=== PATIENT | female | born 1945 | race Caucasian/White ===

== ENCOUNTER 2022-08-10 11:11 | Inpatient (IN) | payer OTHER ==
[~2022-08-10] VITALS: Ht 162.6 cm; Wt 61.2 kg
[2022-08-10 11:31] VITALS: BP_SYST 132
[2022-08-10] MEDS ORDERED: HYDROcodone/ACETAMIN 10-325 MG TAB PO ONE (12:00)
[2022-08-10] MEDS ORDERED: LORazepam 1 MG TABLET PO ONE (12:00)
[2022-08-10] MEDS ORDERED: KETOROLAC TROMETHAMINE 60 MG/2 ML VIAL IM ONE (12:00)
[2022-08-10] MEDS ORDERED: MORPHINE 4 MG INJ. 4 MG/ML VIAL IM ONE (13:45)
[2022-08-10 14:46] LABS: BASOPHILS % (AUTO) 0.6 % (0.0-2.0); EOSINOPHILS % (AUTO) 0.2 % (0.0-4.0); HEMATOCRIT 38.5 % (36-48); HEMOGLOBIN 12.6 g/dL (12.0-16.0); LYMPHOCYTES # (AUTO) 0.9 K/uL (1.0-5.5); LYMPHOCYTES % (AUTO) 11.6 % (20.5-51.5); MEAN CORPUSCULAR HEMOGLOBIN 27 pg (27-31); MEAN CORPUSCULAR HGB CONC 33 % (32-36); MEAN CORPUSCULAR VOLUME 83 fL (79.0-98.0); MONOCYTES # (AUTO) 0.4 K/uL (0.0-1.0); MONOCYTES % (AUTO) 4.7 % (1.7-9.3); NEUTROPHILS # (AUTO) 6.4 K/uL (1.8-7.7); NEUTROPHILS % (AUTO) 82.9 % (40.0-70.0); PLATELET COUNT (AUTO) 345 K/uL (130-430); RED BLOOD CELL COUNT(AUTO) 4.64 MIL/uL (4.2-6.2); RED CELL DISTRIBUTION WIDTH 19.5 % (9.0-15.0); WHITE BLOOD COUNT (AUTO) 7.7 K/uL (4.8-10.8)
[2022-08-10 14:55] LABS: ANION GAP 7 (5-15); CHLORIDE 97 mmol/L (98-107); CREATININE 0.86 mg/dL (0.55-1.30); GLUCOSE 119 mg/dL (70-99); UREA NITROGEN, BLOOD 20 mg/dL (8-21)
[2022-08-10 15:15] LABS: ALANINE AMINOTRANSFERASE 27 U/L (12-78); ALBUMIN 3.6 g/dL (3.4-4.8); ASPARTATE AMINOTRANSFERASE 24 U/L (10-37); TOTAL BILIRUBIN 0.5 mg/dL (0.0-1.0)
[2022-08-10] MEDS ORDERED: ONDANSETRON HCL 4 MG/2 ML VIAL IVP PRN (17:00)
[2022-08-10] MEDS ORDERED: MORPHINE 4 MG INJ. 4 MG/ML VIAL IVP ONE (19:15)
[2022-08-10] MEDS ORDERED: ONDANSETRON HCL 4 MG/2 ML VIAL IVP ONE (19:15)
[2022-08-10 21:05] LABS: BILIRUBIN,URINE NEGATIVE (NEGATIVE); BLOOD, URINE NEGATIVE (NEGATIVE); CLARITY/URINE CLEAR (CLEAR); COLOR,URINE YELLOW (YELLOW); GLUCOSE,URINE NEGATIVE (NEGATIVE); KETONES,URINE NEGATIVE (NEGATIVE); LEUKOCYTE ESTERASE ,URINE TRACE (NEGATIVE); NITRITE, URINE NEGATIVE (NEGATIVE); PROTEIN URINE NEGATIVE (NEGATIVE); UROBILINOGEN,URINE 0.2 (0.2-1.0)
[2022-08-10 21:16] LABS: BACTERIA,URINE FEW /HPF (None Seen); MUCUS,URINE None Seen /LPF (None Seen); RBC,URINE 0-3 /HPF (0-3)
[2022-08-10] MEDS: HYDROmorphone 1 MG/ML INJ. CARTRIDGE IVP PRN (21:47)
[2022-08-10 23:42] VITALS: BP_SYST 162; BP_SYST 170
[2022-08-11] MEDS: HYDROmorphone 1 MG/ML INJ. CARTRIDGE IVP PRN ×4 (04:32→22:37)
[2022-08-11] MEDS: HYDROcodone/ACETAMIN 5-325 MG TAB (NORCO/ VICODIN) PO PRN ×2 (07:07→13:34)
[2022-08-11 08:08] VITALS: BP_SYST 140
[2022-08-11 12:00] VITALS: BP_SYST 144
[2022-08-11] MEDS ORDERED: VALSARTAN 160 MG TABLET (DIOVAN) PO SCH (15:30)
[2022-08-11] MEDS ORDERED: BACL10TA PO (15:42)
[2022-08-11] MEDS ORDERED: LAM100 PO (15:42)
[2022-08-11] MEDS ORDERED: DULO30CA52 PO (15:42)
[2022-08-11] MEDS ORDERED: METO50TA7 PO (15:42)
[2022-08-11] MEDS ORDERED: AMLO5TAB92 PO (15:42)
[2022-08-11] MEDS ORDERED: CLON0.1T PO (15:42)
[2022-08-11] MEDS ORDERED: VALS320T2 PO (15:42)
[2022-08-11] MEDS ORDERED: ZOLP10TA2 PO (15:42)
[2022-08-11 16:00] VITALS: BP_SYST 132
[2022-08-11] MEDS ORDERED: amLODIPine BESYLATE 5 MG TABLET PO ONE (16:00)
[2022-08-11] MEDS ORDERED: DULoxetine HCL 30 MG CAPSULE.DR (CYMBALTA) PO ONE (16:00)
[2022-08-11] MEDS ORDERED: METOPROLOL SUCCINATE 50 MG TAB.SR.24H (TOPROL XL) PO ONE (16:00)
[2022-08-11] MEDS ORDERED: LOSARTAN POTASSIUM 50 MG TABLET (COZAAR) PO ONE (16:15)
[2022-08-11] MEDS ORDERED: LIDOCAINE PATCH 5% 1 EA TP ONE (16:15)
[2022-08-11] MEDS: D5NS 1,000 ML IV SCH (16:31)
[2022-08-11 20:00] VITALS: BP_SYST 175
[2022-08-11] MEDS: AMITRIPTYLINE HCL 25 MG TABLET (ELAVIL) PO SCH (20:39)
[2022-08-11] MEDS: BACLOFEN 10 MG TABLET PO SCH (20:40)
[2022-08-11] MEDS: cloNIDine HCL 0.1 MG TABLET PO PRN (20:40)
[2022-08-11] MEDS: OXYCODONE/ACETAMINOPHEN 5-325 TABLET PO PRN (20:41)
[2022-08-11] MEDS: LamoTRIgine 100 MG TABLET PO SCH (20:42)
[2022-08-11] MEDS: ZOLPIDEM TARTRATE 5 MG TABLET PO SCH (23:50)
[2022-08-12] VITALS: BP_SYST 149
[2022-08-12] MEDS: HYDROmorphone 1 MG/ML INJ. CARTRIDGE IVP PRN ×3 (06:10→21:16)
[2022-08-12 08:00] VITALS: BP_SYST 162
[2022-08-12 08:05] VITALS: BP_SYST 159
[2022-08-12] MEDS: AMITRIPTYLINE HCL 25 MG TABLET (ELAVIL) PO SCH ×2 (09:45→21:15)
[2022-08-12] MEDS: LOSARTAN POTASSIUM 50 MG TABLET (COZAAR) PO SCH (09:46)
[2022-08-12] MEDS: OXYCODONE/ACETAMINOPHEN 5-325 TABLET PO PRN (09:47)
[2022-08-12] MEDS: METOPROLOL SUCCINATE 50 MG TAB.SR.24H (TOPROL XL) PO SCH (09:48)
[2022-08-12] MEDS: amLODIPine BESYLATE 5 MG TABLET PO SCH (09:48)
[2022-08-12] MEDS: BACLOFEN 10 MG TABLET PO SCH ×3 (09:49→21:14)
[2022-08-12] MEDS: DULoxetine HCL 30 MG CAPSULE.DR (CYMBALTA) PO SCH (09:49)
[2022-08-12] MEDS: D5NS 1,000 ML IV SCH (11:13)
[2022-08-12 13:33] VITALS: BP_SYST 139
[2022-08-12] MEDS ORDERED: fentaNYL 50 MCG/HR PATCH TD SCH (15:30)
[2022-08-12] MEDS ORDERED: POLYETHYLENE GLYCOL 3350, 17 GM/ POWD.PACK PO ONE (15:30)
[2022-08-12] MEDS: POLYETHYLENE GLYCOL 3350, 17 GM/ POWD.PACK PO SCH (17:22)
[2022-08-12] MEDS: LIDOCAINE PATCH 5% 1 EA TP SCH (17:22)
[2022-08-12 17:27] VITALS: BP_SYST 129
[2022-08-12] MEDS ORDERED: LORazepam 1 MG TABLET PO PRN (17:30)
[2022-08-12 20:00] VITALS: BP_SYST 171
[2022-08-12] MEDS: LamoTRIgine 100 MG TABLET PO SCH (21:15)
[2022-08-12] MEDS: cloNIDine HCL 0.1 MG TABLET PO PRN (21:26)
[2022-08-12] MEDS: ZOLPIDEM TARTRATE 5 MG TABLET PO SCH (22:28)
[2022-08-13 04:02] VITALS: BP_SYST 142
[2022-08-13 08:01] VITALS: BP_SYST 140
[2022-08-13] MEDS: DULoxetine HCL 30 MG CAPSULE.DR (CYMBALTA) PO SCH (09:43)
[2022-08-13] MEDS: METOPROLOL SUCCINATE 50 MG TAB.SR.24H (TOPROL XL) PO SCH (09:48)
[2022-08-13] MEDS: BACLOFEN 10 MG TABLET PO SCH ×3 (09:48→21:21)
[2022-08-13] MEDS: LOSARTAN POTASSIUM 50 MG TABLET (COZAAR) PO SCH (09:48)
[2022-08-13] MEDS: AMITRIPTYLINE HCL 25 MG TABLET (ELAVIL) PO SCH ×2 (09:49→21:23)
[2022-08-13] MEDS: POLYETHYLENE GLYCOL 3350, 17 GM/ POWD.PACK PO SCH (09:49)
[2022-08-13] MEDS: amLODIPine BESYLATE 5 MG TABLET PO SCH (09:49)
[2022-08-13] MEDS: D5NS 1,000 ML IV SCH (09:52)
[2022-08-13] MEDS: OXYCODONE/ACETAMINOPHEN 5-325 TABLET PO PRN ×2 (09:57→15:34)
[2022-08-13 11:59] VITALS: BP_SYST 139
[2022-08-13] MEDS ORDERED: OXYC-128 PO (12:01)
[2022-08-13] MEDS ORDERED: ALPR0.25 PO (12:03)
[2022-08-13] MEDS: LIDOCAINE PATCH 5% 1 EA TP SCH (16:05)
[2022-08-13 16:51] VITALS: BP_SYST 126
[2022-08-13 20:00] VITALS: BP_SYST 141
[2022-08-13] MEDS: LamoTRIgine 100 MG TABLET PO SCH (21:20)
[2022-08-13] MEDS: ZOLPIDEM TARTRATE 5 MG TABLET PO SCH (21:23)
[2022-08-13] MEDS: HYDROmorphone 1 MG/ML INJ. CARTRIDGE IVP PRN (22:17)
[2022-08-14 01:09] VITALS: BP_SYST 130
[2022-08-14] MEDS: D5NS 1,000 ML IV SCH (04:15)
[2022-08-14] MEDS: BACLOFEN 10 MG TABLET PO SCH ×3 (08:59→21:29)
[2022-08-14] MEDS: POLYETHYLENE GLYCOL 3350, 17 GM/ POWD.PACK PO SCH (08:59)
[2022-08-14] MEDS: LOSARTAN POTASSIUM 50 MG TABLET (COZAAR) PO SCH (09:00)
[2022-08-14] MEDS: DULoxetine HCL 30 MG CAPSULE.DR (CYMBALTA) PO SCH (09:00)
[2022-08-14] MEDS: AMITRIPTYLINE HCL 25 MG TABLET (ELAVIL) PO SCH ×2 (09:01→21:29)
[2022-08-14] MEDS: METOPROLOL SUCCINATE 50 MG TAB.SR.24H (TOPROL XL) PO SCH (09:01)
[2022-08-14] MEDS: amLODIPine BESYLATE 5 MG TABLET PO SCH (09:01)
[2022-08-14] MEDS: OXYCODONE/ACETAMINOPHEN 5-325 TABLET PO PRN ×2 (11:27→21:28)
[2022-08-14 11:30] VITALS: BP_SYST 126
[2022-08-14] MEDS: LIDOCAINE PATCH 5% 1 EA TP SCH (15:59)
[2022-08-14 16:10] VITALS: BP_SYST 132
[2022-08-14 20:00] VITALS: BP_SYST 123
[2022-08-14] MEDS: ZOLPIDEM TARTRATE 5 MG TABLET PO SCH (21:29)
[2022-08-14] MEDS: LamoTRIgine 100 MG TABLET PO SCH (21:29)
[2022-08-15] MEDS: D5NS 1,000 ML IV SCH (00:15)
[2022-08-15 00:25] VITALS: BP_SYST 108
[2022-08-15] MEDS: DULoxetine HCL 30 MG CAPSULE.DR (CYMBALTA) PO SCH (09:00)
[2022-08-15] MEDS: AMITRIPTYLINE HCL 25 MG TABLET (ELAVIL) PO SCH (09:00)
[2022-08-15] MEDS: LOSARTAN POTASSIUM 50 MG TABLET (COZAAR) PO SCH (09:00)
[2022-08-15] MEDS: BACLOFEN 10 MG TABLET PO SCH (09:01)
[2022-08-15] MEDS: METOPROLOL SUCCINATE 50 MG TAB.SR.24H (TOPROL XL) PO SCH (09:01)
[2022-08-15] MEDS: POLYETHYLENE GLYCOL 3350, 17 GM/ POWD.PACK PO SCH (09:02)
[2022-08-15] MEDS: amLODIPine BESYLATE 5 MG TABLET PO SCH (09:02)
[2022-08-15] MEDS: OXYCODONE/ACETAMINOPHEN 5-325 TABLET PO PRN ×2 (09:10→15:15)
[2022-08-15 11:05] VITALS: BP_SYST 115
[2022-08-15 13:05] VITALS: BP_SYST 115
[2022-08-15] MEDS ORDERED: FENT1PAT5 TD (14:57)
[2022-08-15] MEDS ORDERED: HYDR-3917 PO (14:57)
[2022-08-15 15:00] VITALS: BP_SYST 122
== END 2022-08-15 23:29 | disposition home health service (06) | DRG 552 ==
LOC: SED 11:11 → SMU 16:54
PROVIDERS: ADMIT Specialist; ATTEND Specialist
DX: S32.19XA Other fracture of sacrum, initial encounter for closed fracture (principal); M54.18 Radiculopathy, sacral and sacrococcygeal region; Z88.0 Allergy status to penicillin; Z88.8 Allergy status to other drugs, medicaments and biological substances; Z20.822 Contact with and (suspected) exposure to COVID-19; X58.XXXA Exposure to other specified factors, initial encounter; Y93.89 Activity, other specified; Y92.89 Other specified places as the place of occurrence of the external cause; Y99.8 Other external cause status
CPT/HCPCS: 36415; 71045; 72131; 72148; 76376; 80053; 81000; 82550; 83605; 84484; 85025; 87086; 93005; 96372; 96374; 96375; 96376; 97163-GP; 99285; J1170; J1885; J2270; J2405

== ENCOUNTER 2023-01-23 00:46 | Inpatient (IN) | payer OTHER ==
[~2023-01-23] VITALS: Ht 167.6 cm; Wt 56.7 kg
[2023-01-23] VITALS (8 sets, daily range): BP systolic 130–152; PULSE 74–98; RESP 16–20; TEMP 96.8–98.2; O2SAT 97–99
[~2023-01-23 00:46] MED LIST: AMLO5TAB92 PO; BACL10TA PO; CLON0.1T PO; DULO30CA52 PO; LAM100 PO; METO50TA7 PO; VALS320T2 PO; ZOLP10TA2 PO
--- NOTE | 2023-01-23 00:49 | NUR ---
ER Dr. ZHAO at bedside examining patient.
--- NOTE | 2023-01-23 00:58 | NUR ---
Patient to ER bed 05 to gown for evaluation. Side rails up. Report given to PATRICA JOHNSON.
--- NOTE | 2023-01-23 00:59 | NUR ---
BS OF 109 PER EMS. BS 105 ON ARRIVAL, MADE AWARE.
--- NOTE | 2023-01-23 01:05 | NUR ---
PT BIB AMBULANCE BLS - FROM HOME, ASSISTED TO BED 5 VIA GURNEY. PER BLS STAFF PT WAS FOUND ON THE BATHROOM FLOOR NAKED AND ALTERED MENTAL STATUS. PT AWAKE AND GROGGY, AND ABLE TO MAKE NEEDS KNOW. PT DENIES PAIN AT THIS TIME. PT DENIES N/V/D, SOB/CP. PT DENIES FEVER AND CHILLS. SAFETY PRECAUTIONS IN PLACE.
[2023-01-23 01:40] LABS: BASOPHILS % (AUTO) 0.9 % (0.0-2.0); EOSINOPHILS # (AUTO) 0.1 K/uL (0.0-0.4); EOSINOPHILS % (AUTO) 2.8 % (0.0-4.0); HEMOGLOBIN 12.9 g/dL (12.0-16.0); LYMPHOCYTES % (AUTO) 37.4 % (20.5-51.5); MEAN CORPUSCULAR HEMOGLOBIN 31 pg (27-31); MEAN CORPUSCULAR HGB CONC 34 % (32-36); MEAN CORPUSCULAR VOLUME 92 fL (79.0-98.0); MONOCYTES # (AUTO) 0.6 K/uL (0.0-1.0); MONOCYTES % (AUTO) 11.7 % (1.7-9.3); NEUTROPHILS # (AUTO) 2.5 K/uL (1.8-7.7); NEUTROPHILS % (AUTO) 47.2 % (40.0-70.0); PLATELET COUNT (AUTO) 290 K/uL (130-430); RED BLOOD CELL COUNT(AUTO) 4.13 MIL/uL (4.2-6.2); RED CELL DISTRIBUTION WIDTH 15.5 % (9.0-15.0); WHITE BLOOD COUNT (AUTO) 5.3 K/uL (4.8-10.8)
[2023-01-23 01:45] LABS: ANION GAP 7 (5-15); CALCIUM 8.3 mg/dL (8.4-11.0); CHLORIDE 95 mmol/L (98-107); CREATININE 0.83 mg/dL (0.55-1.30); GLUCOSE 93 mg/dL (74-106); UREA NITROGEN, BLOOD 23 mg/dL (8-21)
[2023-01-23 01:50] LABS: ALANINE AMINOTRANSFERASE 20 U/L (12-78); ALBUMIN 3.7 g/dL (3.4-4.8); ASPARTATE AMINOTRANSFERASE 16 U/L (10-37); TOTAL BILIRUBIN 0.4 mg/dL (0.0-1.0)
[2023-01-23 02:17] LABS: BILIRUBIN,URINE NEGATIVE (NEGATIVE); BLOOD, URINE NEGATIVE (NEGATIVE); CLARITY/URINE CLEAR (CLEAR); COLOR,URINE YELLOW (YELLOW); GLUCOSE,URINE NEGATIVE (NEGATIVE); KETONES,URINE NEGATIVE (NEGATIVE); LEUKOCYTE ESTERASE ,URINE NEGATIVE (NEGATIVE); NITRITE, URINE NEGATIVE (NEGATIVE); PROTEIN URINE NEGATIVE (NEGATIVE); UROBILINOGEN,URINE 0.2 (0.2-1.0)
[2023-01-23 02:55] LABS: BARBITURATE, URINE NEGATIVE (NEG <=200); BENZODIAZEPINE, URINE NEGATIVE (NEG <=150); CANNABINOID, URINE NEGATIVE (NEG <=50); COCAINE, URINE NEGATIVE (NEG <=150); METHAMPHETAMINES SCREEN,URINE NEGATIVE (NEG <=500); OPIATE, URINE NEGATIVE (NEG <=100); PHENCYCLIDINE SCREEN,URINE NEGATIVE (NEG <=25); UR TRICYCLIC ANTIDEPRESSANTS NEGATIVE (NEG <=300); URINE AMPHETAMINE NEGATIVE (NEG <=500); URINE METHADONE NEGATIVE (NEG <=200); URINE OXYCODONE SCREEN NEGATIVE (NEG <=100); URINE PROPOXYPHENE SCREEN NEGATIVE (NEG <=300)
--- NOTE | 2023-01-23 04:06 | NUR ---
Admit bed requested Patient will be admitted to care of . Admitted to MED SURG unit. Diagnosis CONCUSSION Inpatient (Yes or No) YES Observation (Yes or No) NO Orientation concerns or request close to nursing station (Yes or No) NO Covid Status NA On vent or bipap NO Isolation requirements NO Needs a sitter NO From Home (Yes or if No enter name of facility) YES Requires Dialysis (Yes or No) NO Med Rec Completed (Yes of No) NO
--- NOTE | 2023-01-23 04:08 | NUR ---
UNABLE TO RECONCILE MEDICATIONS PT DOES NOT KNOW MEDICATIONS AND DOSAGES.
--- NOTE | 2023-01-23 05:21 | NUR ---
Patient will be admitted to care of DR DIETRICH. Admitted to MED SURG unit. Will go to room 119A. Belongings list completed. Complete and up to date summary report printed. SBAR report to be given at bedside with opportunity for questions.
--- NOTE | 2023-01-23 05:31 | NUR ---
Report received from PATRICA Pinto for continuity of care. Patient arrived to room 119A from ER for c/o concussion. Patient is alert and oriented x4. No neuro deficits. Respiration even and unlabored. No shortness of breath. Patient is responsive to verbal requests. Able to move around in bed. No skin issues noted. Patient resting in bed. Vital signs stable. No c/o pain. Will continue to monitor. Call light within reach.
--- NOTE | 2023-01-23 05:43 | NUR ---
Consultation Paged Reason for Consult: Concussion Was consult called: Y Person who was notified: Dr. Anne via text message Consulting Physician: Edilson Daily Ordering Physician: Lenny Humphries
--- NOTE | 2023-01-23 06:47 | NUR ---
Patient resting at the moment. No active distress noted.
[2023-01-23] MEDS ORDERED: HYDROcodone/ACETAMIN 10-325 MG TAB PO PRN (17:45)
[2023-01-23] MEDS ORDERED: HYDROcodone/ACETAMIN 5-325 MG TAB (NORCO/ VICODIN) PO PRN (17:45)
[2023-01-23] MEDS ORDERED: ACETAMINOPHEN 325 MG TABLET PO PRN ×2 (17:45→18:30)
[2023-01-23] MEDS ORDERED: LORazepam 2 MG/ML VIAL IVP PRN (17:45)
[2023-01-23] MEDS ORDERED: ONDANSETRON HCL 4 MG/2 ML VIAL IVP PRN (17:45)
[2023-01-23] MEDS ORDERED: NALOXONE HCL 0.4 MG/ML AMP (NARCAN) IVP PRN ×2 (17:45)
--- NOTE | 2023-01-23 19:25 | NUR ---
Dr Anne rounds Dr. Anne at bedside to see/eval patient. He reports patient is cleared from Neuro care, and is cleared to discharge.
--- NOTE | 2023-01-23 19:35 | NUR ---
Patient is upset, pacing, yelling Patient was informed is cleared by Neurologist and I informed will notify admitting physician she has been cleared and then we can start DC process. She got mad, she was dressed up and ready to go as soon as Dr. Anne said she was cleared. Dr. Rousseau entered DC home order and will process.
[2023-01-23] MEDS ORDERED: ZOLPIDEM TARTRATE 5 MG TABLET PO SCH (21:00)
[2023-01-23] MEDS ORDERED: LamoTRIgine 100 MG TABLET PO SCH (21:00)
[2023-01-23] MEDS ORDERED: DULoxetine HCL 30 MG CAPSULE.DR (CYMBALTA) PO SCH (21:00)
--- NOTE | 2023-01-23 21:35 | NUR ---
D/C Patient Patient given medication reconciliation form and D/C instructions. Exit Care provided. Patient verbalized understanding. MD discussed with patient the results and treatment provided. Ambulatory with steady gait for discharge to home. Patient in stable condition, ID band removed. IV catheter removed, intact and dressing applied, no active bleeding. no new Rx given. Patient educated on blood pressure medication. All belongings sent with patient. Patient did not have ride and she did not want to contact anyone, she said she lives alone. Hospital arranged Uber ride
[2023-01-23] MEDS ORDERED: NORMAL SALINE 5 ML DISP.SYRIN IVF SCH (22:00)
[2023-01-23] MEDS ORDERED: cloNIDine HCL 0.1 MG TABLET PO SCH (22:00)
[2023-01-24] MEDS ORDERED: METOPROLOL SUCCINATE 50 MG TAB.SR.24H (TOPROL XL) PO SCH (09:00)
[2023-01-24] MEDS ORDERED: VALSARTAN Non-Formulary 160 MG TABLET PO SCH (09:00)
[2023-01-24] MEDS ORDERED: amLODIPine BESYLATE 5 MG TABLET PO SCH (09:00)
[2023-01-24] MEDS ORDERED: LOSARTAN POTASSIUM 50 MG TABLET (COZAAR) PO SCH (09:00)
== END 2023-01-23 21:57 | disposition home or self-care (01) | DRG 640 ==
LOC: SED 00:46 → SMU 04:09
PROVIDERS: ADMIT Preventive Medicine Preventive Medicine/Occupational Environmental Medicine; ATTEND Preventive Medicine Preventive Medicine/Occupational Environmental Medicine
DX: E87.1 Hypo-osmolality and hyponatremia (principal); G93.41 Metabolic encephalopathy; F07.81 Postconcussional syndrome; E78.5 Hyperlipidemia, unspecified; Z96.649 Presence of unspecified artificial hip joint; I10 Essential (primary) hypertension; G47.00 Insomnia, unspecified; Z88.0 Allergy status to penicillin; Z88.8 Allergy status to other drugs, medicaments and biological substances; Z79.899 Other long term (current) drug therapy; Z87.81 Personal history of (healed) traumatic fracture
CPT/HCPCS: 36415; 70450-TC; 71045; 72192-TC; 76376; 80053; 80307; 81003; 83605; 85025; 87040; 93005; 99285